=== PATIENT | female | born 1990 | race Caucasian/White ===

== ENCOUNTER 2018-08-15 17:45 | Emergency (ER) | payer SELFPAY ==
[2018-08-15] MEDS ORDERED: predniSONE 20 MG TAB ONE (18:25)
== END 2018-08-15 18:36 | disposition home or self-care (01) ==
LOC: ERS 17:45
DX: T65.91XA Toxic effect of unspecified substance, accidental (unintentional), initial encounter (principal); L25.3 Unspecified contact dermatitis due to other chemical products; F17.210 Nicotine dependence, cigarettes, uncomplicated; F41.9 Anxiety disorder, unspecified
CPT/HCPCS: 99283; J7506